=== PATIENT | male | born 1995 | race Caucasian/White ===

== ENCOUNTER 2025-09-02 08:18 | Day surgery (SDC) | payer OTHER ==
[~2025-09-02] VITALS: Ht 177.8 cm; Wt 81.8 kg
[2025-09-02] MEDS ORDERED: LR 1,000 ML IV SCH ×2 (08:50→11:25)
[2025-09-02] MEDS ORDERED: MIDAZOLAM INJ 2 MG/2 ML VIAL As Ordered ONE (09:52)
[2025-09-02] MEDS ORDERED: LIDOCAINE 2% 100 MG/5 ML SDV (FOR ANES.) As Ordered ONE (09:52)
[2025-09-02] MEDS ORDERED: ROCURONIUM BROMIDE 50MG/5ML VIAL As Ordered ONE (09:52)
[2025-09-02] MEDS: METHYLENE BLUE 0.5% (5 MG/ML) 10 ML AMP As Ordered ONE (10:59)
[2025-09-02] MEDS: LIDOCAINE W/EPINEPHrine 1% 20 ML VIAL As Ordered ONE (10:59)
[2025-09-02] MEDS: OXYMETAZOLINE 0.05% NASAL SPRAY As Ordered ONE (11:00)
[2025-09-02] MEDS ORDERED: ONDANSETRON 4MG/2ML VIAL As Ordered ONE (11:08)
[2025-09-02] MEDS ORDERED: ACETAMINOPHEN 1000MG/100ML IV BAG As Ordered ONE (11:08)
[2025-09-02] MEDS ORDERED: dexAMETHasone 4 MG/ML 1 ML VIAL As Ordered ONE (11:08)
[2025-09-02] MEDS ORDERED: KETOROLAC 30 MG/ML 1 ML VIAL As Ordered ONE (11:08)
[2025-09-02] MEDS ORDERED: SUGAMMADEX SODIUM 500 MG/5 ML VIAL As Ordered ONE (11:24)
[2025-09-02] MEDS ORDERED: ONDANSETRON 4MG/2ML VIAL IV PRN (11:25)
[2025-09-02] MEDS ORDERED: HYDROMORPHONE HCL 0.5 MG/0.5 ML SYRINGE IV PRN (11:25)
[2025-09-02 12:23] VITALS: BP 117/76; TEMP 97.3; O2SAT 98
== END 2025-09-02 12:48 | disposition home or self-care (01) ==
LOC: M SDC 08:18
PROVIDERS: ATTEND Otolaryngology
DX: J34.2 Deviated nasal septum (principal); J34.3 Hypertrophy of nasal turbinates
CPT/HCPCS: 30140; 30520; J0131; J1100; J1885; J2250; J2405; J3010; J3490